=== PATIENT | male | born 1995 | race Caucasian/White ===

== ENCOUNTER 2018-09-24 09:03 | Emergency (ER) | payer OTHER ==
--- NOTE | 2018-09-24 09:15 | PDOC ---
History of Present Illness - General Chief Complaint: Overdose Stated Complaint: EXTRA DOSE OF MEDICINES Time Seen by Provider: 09/24/18 09:10 History Source: Care Provider Exam Limitations: Other (autism) - History of Present Illness Initial Comments: 09/24/18 09:10 23yo male h/o developemental delay [facility] skilled nursing here after having received duplicate medications this am. usual am meds include clonicine 0.075 , risperdol 2mg, miralax so patient receieved clonidine 0.15 total at 7:30 am. no change to behavior. no n/v no dizziness. no other complaints. has been activin himself. Past History - Past Medical History Allergies/Adverse Reactions: Allergies Allergy/AdvReac Type Severity Reaction Status Date / Time No Known Allergies Allergy Verified 09/24/18 09:06 Review of Systems - Review of Systems Constitutional: No: Chills, Diaphoresis Respiratory: No: Cough Cardiac (ROS): No: Chest Pain All Other Systems: Reviewed and Negative *Physical Exam - Physical Exam Comments: 09/24/18 09:12 awake alert lungs clear bilat. heart rrr no mrg abd soft nt nd ext wwp. Medical Decision Making - Medical Decision Making 09/24/18 09:12 23 yo who received duplicate meds this am totaling clonidine 0.15 and risperdol 4mg at 7:30 am. no change to behavior. pt awake and alert today. no chagne to baseline per staff. plan to dc home. *DC/Admit/Observation/Transfer Diagnosis at time of Disposition: Medication administered - Discharge Dispostion Disposition: HOME Condition at time of disposition: Good - Referrals - Patient Instructions Printed Discharge Instructions: Protecting Yourself Against Medication Errors Additional Instructions: you should follow up as needed. be sure to check his blood pressure tonight before giving his evening meds. return for somnolence, unresponsiveness, dizziness, or any concerns you have. - Post Discharge Activity
[2018-09-24 09:26] VITALS: BP 120/60; PULSE 99; BMI 24.7
== END 2018-09-24 09:28 | disposition home or self-care (01) ==
LOC: FER 09:03
DX: T46.5X1A Poisoning by other antihypertensive drugs, accidental (unintentional), initial encounter (principal); T43.591A Poisoning by other antipsychotics and neuroleptics, accidental (unintentional), initial encounter; Y92.099 Unspecified place in other non-institutional residence as the place of occurrence of the external cause
CPT/HCPCS: 99283-25

== ENCOUNTER 2018-10-12 09:28 | Emergency (ER) | payer OTHER ==
[2018-10-12 09:40] VITALS: BP 113/69; PULSE 98; TEMP 98.1; BMI 29.0
--- NOTE | 2018-10-12 09:47 | PDOC ---
History of Present Illness - General Chief Complaint: Edema Stated Complaint: RIGHT HAND SWELLING Time Seen by Provider: 10/12/18 09:44 History Source: Legal Guardian(s) (Patient brought in by aides from [facility], [place] because the staff noticed swelling of hands. Reportedely, patient was recently transferred from [facility], wearing a helmet and protective hand mites.) Exam Limitations: Clinical Condition - History of Present Illness Timing/Duration: unsure Severity: mild Modifying Factors: worse with: cold therapy, eating, immobilization, medication , movement, rest, other Associated Symptoms: reports: denies symptoms Past History - Travel Traveled outside of the country in the last 30 days: No - Past Medical History Allergies/Adverse Reactions: Allergies Allergy/AdvReac Type Severity Reaction Status Date / Time No Known Allergies Allergy Verified 10/12/18 09:31 Home Medications: Ambulatory Orders Calcium Carbonate/Vitamin D3 [Calcium 500 + Vit D Caplet] 1 each PO DAILY Clonidine HCl [Catapres] 0.05 mg PO HS 09/24/18 Clonidine HCl [Catapres] 0.075 mg PO BID 09/24/18 Multivitamins [Tab-A-Vit -] 1 tab PO DAILY 09/24/18 Polyethylene Glycol 3350 [Miralax (For Daily Use) -] 17 gm PO HS 09/24/18 Risperidone [Risperdal] 1 mg PO HS 09/24/18 Risperidone [Risperdal] 2 mg PO DAILY 09/24/18 Simvastatin 10 mg PO HS 09/24/18 Tretinoin Microspheres [Tretinoin Microsphere] 20 gm TP BID 09/24/18 COPD: No GI Disorders: Yes (CONSTIPATION) Hypercholesterolemia: Yes Psychiatric Problems: Yes (AUTISM) Other medical history: ACNE, - Immunization History Immunization Up to Date: Yes - Suicide/Smoking/Psychosocial Hx Smoking History: Never smoked Information on smoking cessation initiated: No Hx Alcohol Use: No Drug/Substance Use Hx: No Review of Systems - Review of Systems Able to Perform ROS?: No Comments:: Patient minimally verbal, expressing emotions, mainly anxiety, non violent, ambulating freely 10/12/18 10:48 Is the patient limited Occitan proficient: No Constitutional: No: Symptoms Reported, See HPI, Chills, Diaphoresis, Fever, Loss of Appetite, Malaise, Night Sweats, Weakness, Weight Stable, Unintentional Wgt. Loss, Unexplained wgt Loss, Other HEENTM: No: Symptoms Reported, See HPI, Eye Pain, Blurred Vision, Tearing, Recent change in vision, Double Vision, Cataracts, Ear Pain, Ocular Prothesis, Ear Discharge, Nose Pain, Nose Congestion, Tinnitus, Nose Bleeding, Hearing Loss , Throat Pain, Throat Swelling, Mouth Pain, Dental Problems, Difficulty Swallowing, Mouth Swelling, Other Musculoskeletal: Yes: Symptoms Reported (Swelling of hands) All Other Systems: Reviewed and Negative *Physical Exam - Vital Signs Last Vital Signs Temp Pulse Resp BP Pulse Ox 98.1 F 98 H 16 113/69 100 10/12/18 09:30 10/12/18 09:30 10/12/18 09:30 10/12/18 09:30 10/12/18 09:30 - Physical Exam General Appearance: Yes: Nourished, Appropriately Dressed, Mild Distress Extremity: positive: Normal Capillary Refill, Swelling (Mild Swelling of both hands, No signs of injury) Integumentary: positive: Normal Color, Pale Neurologic: positive: Other (Minimally ) *DC/Admit/Observation/Transfer Diagnosis at time of Disposition: Swelling of both hands - Discharge Dispostion Disposition: HOME Condition at time of disposition: Stable Decision to Admit order: No - Referrals Referrals: Jm Knox [Primary Care Provider] - - Patient Instructions Printed Discharge Instructions: DI for Hand Pain Additional Instructions: Avoid tight gloves/mites on hands Exercse passive and active without mites few times a day If problem persist follow up with PCP - Post Discharge Activity
== END 2018-10-12 12:15 | disposition home or self-care (01) ==
LOC: FER 09:28
DX: M79.89 Other specified soft tissue disorders (principal); K59.00 Constipation, unspecified; E78.00 Pure hypercholesterolemia, unspecified; F84.0 Autistic disorder
CPT/HCPCS: 73130-TC-LT-FY; 73130-TC-RT-FY; 99281-25